=== PATIENT | female | born 1935 | race African-American/Black ===

== ENCOUNTER 2019-04-29 14:47 | Inpatient (IN) | payer MEDICARE, OTHER ==
[~2019-04-29] VITALS: Ht 167.6 cm; Wt 86.5 kg
[2019-04-29 15:29] LABS: GLUCOSE,POINT OF CARE 127 MG/DL (70-110)
[2019-04-29] MEDS ORDERED: ASPI81 PO (15:33)
[2019-04-29] MEDS ORDERED: ALEN70TA10 PO (15:33)
[2019-04-29] MEDS ORDERED: AMLO2.5T4 PO (15:33)
[2019-04-29] MEDS ORDERED: FLUT100B IH (15:33)
[2019-04-29] MEDS ORDERED: HYDR200T4 PO (15:33)
[2019-04-29] MEDS ORDERED: OXYC-530 PO (15:33)
[2019-04-29] MEDS ORDERED: CALC-1194 PO (15:33)
[2019-04-29] MEDS ORDERED: ATOR20TA86 PO (15:33)
[2019-04-29] MEDS ORDERED: FAMO20 PO (15:33)
[2019-04-29] MEDS ORDERED: PHOSLOC PO (15:33)
[2019-04-29] MEDS ORDERED: CARV3 PO (15:33)
[2019-04-29] MEDS ORDERED: FURO40 PO (15:33)
[2019-04-29 17:22] LABS: BASOPHILS % (AUTO) 0.2 % (0.0-2.0); EOSINOPHILS % (AUTO) 9.2 % (1.0-6.0); HEMATOCRIT 36.4 % (36-46); HEMOGLOBIN 11.8 g/dL (12.0-16.0); LYMPHOCYTES # (AUTO) 2.8 K/uL (1.0-4.8); LYMPHOCYTES % (AUTO) 21.9 % (22.0-44.0); MEAN CORPUSCULAR HGB CONC 32.3 G/dL (31.0-37.0); MEAN CORPUSCULAR VOLUME 99 fL (80-100); MONOCYTES # (AUTO) 1.2 K/uL (0.1-1.0); MONOCYTES % (AUTO) 9.4 % (2.0-9.0); NEUTROPHILS # (AUTO) 7.5 K/uL (1.8-7.7); NEUTROPHILS % (AUTO) 59.3 % (40.0-70.0); PLATELET COUNT (AUTO) 270 K/uL (150-450); RED BLOOD CELL COUNT(AUTO) 3.69 MIL/uL (4.00-5.20); RED CELL DISTRIBUTION WIDTH 14.7 % (11.5-14.5)
[2019-04-29 17:35] LABS: PROTHROMBIN TIME 10.8 SEC (9.4-11.6)
[2019-04-29 18:00] LABS: ALBUMIN 2.5 g/dL (3.4-5.0); BILIRUBIN,TOTAL 0.3 mg/dL (0.1-1.0); CREATININE 3.94 mg/dL (0.60-1.30); TOTAL PROTEIN, SERUM 8.5 g/dL (6.4-8.2)
[2019-04-29 18:02] LABS: CALCIUM, TOTAL 13.1 mg/dL (8.8-10.5)
[2019-04-29] MEDS ORDERED: SODIUM CHLORIDE 0.9% 2,000 ML IV ONE (18:15)
[2019-04-29 19:06] LABS: APPEARANCE,URINE CLOUDY (CLEAR); BILIRUBIN,URINE NEGATIVE (NEGATIVE); GLUCOSE, URINE (UA) NEGATIVE (NEGATIVE); KETONES,URINE NEGATIVE (NEGATIVE); LEUKOCYTE ESTERASE ,URINE LARGE (NEGATIVE); NITRATE,URINE NEGATIVE (NEGATIVE); OCCULT BLOOD,URINE LARGE (NEGATIVE); PH,URINE 6.5 (5.0-8.0); PROTEIN,URINE POS 1+ (NEGATIVE); UROBILINOGEN,URINE 0.2 mg/dL (<=1.0)
[2019-04-29 19:17] LABS: BACTERIA,URINE Few /HPF (None Seen); SQUAMOUS EPITHELIAL CELL,UR Few /LPF (None Seen); WBC,URINE 26-50 /HPF (0-5)
[2019-04-29] MEDS ORDERED: CEFEPIME HCL 1 GM in DEXTROSE 5%-WATER 50 ML IV ONE (19:45)
[2019-04-29] MEDS ORDERED: SODIUM CHLORIDE 0.9% 1,000 ML IV ONE (20:15)
[2019-04-29 20:30] LABS: CREATININE 4.37 mg/dL (0.60-1.30); POTASSIUM 4.3 mmol/L (3.5-5.1)
[2019-04-29 20:42] LABS: CALCIUM, TOTAL 14.1 mg/dL (8.8-10.5)
[2019-04-29] MEDS ORDERED: ONDANSETRON HCL 4 MG/2 ML VIAL IVP PRN (21:00)
[2019-04-29] MEDS ORDERED: ACETAMINOPHEN 325 MG TABLET PO PRN (21:00)
[2019-04-29] MEDS: CALCITONIN,SALMON,SYNTHETIC 200 UNITS/ML 2 ML VIAL IM SCH (21:33)
[2019-04-29 22:03] VITALS: BP 143/84
[2019-04-30] VITALS (7 sets, daily range): BP systolic 110–146; BP diastolic 52–85
[2019-04-30] MEDS: CALCITONIN,SALMON,SYNTHETIC 200 UNITS/ML 2 ML VIAL IM SCH ×2 (09:21→20:40)
[2019-04-30] MEDS: SODIUM CHLORIDE 0.9% 1,000 ML IV SCH ×2 (09:34→20:19)
[2019-04-30] MEDS ORDERED: MEDRONATE TC99M/UD<30 MCL ISOTOPE 1 EA INJ INJ ONE (11:00)
[2019-04-30 16:45] LABS: CALCIUM, TOTAL 11.5 mg/dL (8.8-10.5); CREATININE 3.08 mg/dL (0.60-1.30); POTASSIUM 3.8 mmol/L (3.5-5.1)
[2019-04-30] MEDS ORDERED: ZOLPIDEM TARTRATE 5 MG TABLET PO PRN (19:00)
[2019-04-30] MEDS ORDERED: MAGNESIUM HYDROXIDE SUSPENSION 30 ML UDCUP PO PRN (19:00)
[2019-04-30] MEDS ORDERED: ACETAMINOPHEN 325 MG TABLET PO PRN (19:00)
[2019-04-30] MEDS ORDERED: IPRATROPIUM BROMIDE 0.5 MG/2.5 ML NEB SOLUTION NEB PRN (19:00)
[2019-04-30] MEDS ORDERED: BISACODYL 10 MG RECTAL RECTAL SUPPOSITORY PR PRN (19:00)
[2019-04-30] MEDS ORDERED: ALBUTEROL SULFATE 2.5 MG/0.5 ML NEB SOLUTION NEB PRN (19:00)
[2019-04-30] MEDS: AmLODIPine BESYLATE 2.5 MG TABLET PO SCH (20:19)
[2019-04-30] MEDS: ONDANSETRON HCL 4 MG/2 ML VIAL IVP PRN (20:19)
[2019-04-30] MEDS: DOCUSATE SODIUM 100 MG CAPSULE PO SCH (20:19)
[2019-04-30] MEDS: CARVEDILOL 3.125 MG TABLET PO SCH (20:19)
[2019-04-30] MEDS: HYDROCODONE/ACETAMINOPHEN 5-325 MG TABLET PO PRN (20:20)
[2019-04-30] MEDS: HEPARIN SODIUM,PORCINE 5,000 UNITS/ML VIAL SQ SCH (23:51)
[2019-05-01 04:12] VITALS: BP 141/70
[2019-05-01] MEDS: SODIUM CHLORIDE 0.9% 1,000 ML IV SCH ×2 (05:01→19:24)
[2019-05-01] MEDS ORDERED: ALENDRONATE SODIUM 70 MG TABLET PO SCH (06:30)
[2019-05-01] MEDS: DOCUSATE SODIUM 100 MG CAPSULE PO SCH ×2 (08:23→20:54)
[2019-05-01] MEDS: ASPIRIN 81 MG CHEWABLE TABLET PO SCH (08:23)
[2019-05-01] MEDS: CARVEDILOL 3.125 MG TABLET PO SCH ×2 (08:23→20:49)
[2019-05-01] MEDS: HYDROXYCHLOROQUINE SULFATE 200 MG TABLET PO SCH (08:23)
[2019-05-01] MEDS: FAMOTIDINE 20 MG TABLET PO SCH (08:23)
[2019-05-01] MEDS: HEPARIN SODIUM,PORCINE 5,000 UNITS/ML VIAL SQ SCH ×2 (08:23→16:31)
[2019-05-01] MEDS: ATORVASTATIN CALCIUM 20 MG TABLET PO SCH (08:23)
[2019-05-01] MEDS: AmLODIPine BESYLATE 2.5 MG TABLET PO SCH (08:23)
[2019-05-01 08:26] VITALS: BP 124/59
[2019-05-01] MEDS: ONDANSETRON HCL 4 MG/2 ML VIAL IVP PRN ×3 (08:34→21:12)
[2019-05-01] MEDS: MORPHINE SULFATE 2 MG/ML SYRINGE IVP PRN (08:39)
[2019-05-01] MEDS ORDERED: PAMIDRONATE DISODIUM 60 MG in SODIUM CHLORIDE 0.9% 500 ML IV ONE (10:30)
[2019-05-01] MEDS: CALCITONIN,SALMON,SYNTHETIC 200 UNITS/ML 2 ML VIAL IM SCH (10:49)
[2019-05-01] MEDS: FLUTICASONE FUROATE 100 MCG/INH INHALER [14] IH SCH (11:38)
[2019-05-01 12:02] VITALS: BP 156/61
[2019-05-01 12:20] LABS: BASOPHILS % (AUTO) 0.4 % (0.0-2.0); HEMATOCRIT 30.6 % (36-46); LYMPHOCYTES # (AUTO) 3.2 K/uL (1.0-4.8); LYMPHOCYTES % (AUTO) 29.9 % (22.0-44.0); MEAN CORPUSCULAR HEMOGLOBIN 32.6 pg (26.0-34.0); MEAN CORPUSCULAR HGB CONC 32.7 G/dL (31.0-37.0); MEAN CORPUSCULAR VOLUME 100 fL (80-100); MONOCYTES # (AUTO) 0.9 K/uL (0.1-1.0); MONOCYTES % (AUTO) 8.5 % (2.0-9.0); NEUTROPHILS # (AUTO) 5.6 K/uL (1.8-7.7); NEUTROPHILS % (AUTO) 52.2 % (40.0-70.0); PLATELET COUNT (AUTO) 251 K/uL (150-450); RED BLOOD CELL COUNT(AUTO) 3.06 MIL/uL (4.00-5.20); RED CELL DISTRIBUTION WIDTH 14.5 % (11.5-14.5)
[2019-05-01 14:03] LABS: ALPHA-1 (IFE & PEP) 0.2 g/dL (0.0-0.4); BETA (IFE & ELP) 0.9 g/dL (0.7-1.3); GAMMA GLOBULINS (IFE & ELP) 2.7 g/dL (0.4-1.8); IGM (IMMUNOFIXATION) 55 mg/dL (26-217)
[2019-05-01 14:03] LABS: ALBUMIN URINE (ELP) 12.8 %
[2019-05-01] MEDS ORDERED: LACTULOSE 20 GM/30 ML SOLUTION UDCUP PO ONE (16:00)
[2019-05-01] MEDS: CefTRIAXone 1 GM/DEXTROSE 50 ML IV SCH (16:32)
[2019-05-01 16:46] VITALS: BP 161/87
[2019-05-01] MEDS: MetroNIDAZOLE 500 MG/NACL 100 ML IV SCH (17:32)
[2019-05-01] MEDS: HYDROCODONE/ACETAMINOPHEN 5-325 MG TABLET PO PRN (20:49)
[2019-05-01 21:31] VITALS: BP 150/69
[2019-05-01 22:03] LABS: FREE KAPPA LIGHT CHAINS,S 493.2 mg/L (3.3-19.4); FREE KAPPA/LAMBDA LT CHN RATIO 2.67 (0.26-1.65)
[2019-05-02] MEDS: HEPARIN SODIUM,PORCINE 5,000 UNITS/ML VIAL SQ SCH ×4 (00:13→23:54)
[2019-05-02] MEDS: MetroNIDAZOLE 500 MG/NACL 100 ML IV SCH ×4 (00:13→23:54)
[2019-05-02 02:01] VITALS: BP 142/69
[2019-05-02 04:59] VITALS: BP 142/75
[2019-05-02 06:23] LABS: BASOPHILS % (AUTO) 0.8 % (0.0-2.0); HEMATOCRIT 30.2 % (36-46); HEMOGLOBIN 9.8 g/dL (12.0-16.0); LYMPHOCYTES # (AUTO) 3.8 K/uL (1.0-4.8); LYMPHOCYTES % (AUTO) 34.7 % (22.0-44.0); MEAN CORPUSCULAR HEMOGLOBIN 32.3 pg (26.0-34.0); MEAN CORPUSCULAR HGB CONC 32.5 G/dL (31.0-37.0); MEAN CORPUSCULAR VOLUME 99 fL (80-100); MONOCYTES # (AUTO) 1.1 K/uL (0.1-1.0); MONOCYTES % (AUTO) 9.8 % (2.0-9.0); NEUTROPHILS # (AUTO) 5.2 K/uL (1.8-7.7); NEUTROPHILS % (AUTO) 47.7 % (40.0-70.0); PLATELET COUNT (AUTO) 256 K/uL (150-450); RED BLOOD CELL COUNT(AUTO) 3.04 MIL/uL (4.00-5.20); RED CELL DISTRIBUTION WIDTH 14.3 % (11.5-14.5)
[2019-05-02 06:49] LABS: ALBUMIN 2.1 g/dL (3.4-5.0); BILIRUBIN,TOTAL 0.3 mg/dL (0.1-1.0); CALCIUM, TOTAL 9.6 mg/dL (8.8-10.5); CREATININE 2.18 mg/dL (0.60-1.30); POTASSIUM 3.5 mmol/L (3.5-5.1); TOTAL PROTEIN, SERUM 7.5 g/dL (6.4-8.2)
[2019-05-02 07:56] VITALS: BP 138/58
[2019-05-02] MEDS: AmLODIPine BESYLATE 2.5 MG TABLET PO SCH (08:39)
[2019-05-02] MEDS: FAMOTIDINE 20 MG TABLET PO SCH (08:39)
[2019-05-02] MEDS: CARVEDILOL 3.125 MG TABLET PO SCH ×2 (08:39→20:40)
[2019-05-02] MEDS: ASPIRIN 81 MG CHEWABLE TABLET PO SCH (08:39)
[2019-05-02] MEDS: FLUTICASONE FUROATE 100 MCG/INH INHALER [14] IH SCH (08:39)
[2019-05-02] MEDS: ONDANSETRON HCL 4 MG/2 ML VIAL IVP PRN (08:39)
[2019-05-02] MEDS: HYDROXYCHLOROQUINE SULFATE 200 MG TABLET PO SCH (08:39)
[2019-05-02] MEDS: ATORVASTATIN CALCIUM 20 MG TABLET PO SCH (08:39)
[2019-05-02 11:15] VITALS: BP 115/63
[2019-05-02] MEDS: DOCUSATE SODIUM 100 MG CAPSULE PO SCH ×2 (11:43→20:41)
[2019-05-02] MEDS: SODIUM CHLORIDE 0.9% 1,000 ML IV SCH (11:43)
[2019-05-02] MEDS ORDERED: ALPRAZolam 0.5 MG TABLET PO ONE (12:30)
[2019-05-02 13:59] LABS: GLUCOMETER DEV NAME(LOC) 5S.1; GLUCOSE,POINT OF CARE 147 MG/DL (70-110)
[2019-05-02] MEDS ORDERED: SODIUM PHOS/SODIUM BIPHOS 133 ML ENEMA PR ONE (15:15)
[2019-05-02 15:46] VITALS: BP 133/68
[2019-05-02] MEDS: CefTRIAXone 1 GM/DEXTROSE 50 ML IV SCH (17:52)
[2019-05-02 19:48] VITALS: BP 122/67
[2019-05-02 19:54] LABS: GLUCOMETER DEV NAME(LOC) 5S.2A; GLUCOSE,POINT OF CARE 63 MG/DL (70-110)
[2019-05-03 00:03] VITALS: BP 145/72
[2019-05-03 04:45] VITALS: BP 148/56
[2019-05-03 06:43] LABS: BASOPHILS % (AUTO) 0.3 % (0.0-2.0); EOSINOPHILS % (AUTO) 7.8 % (1.0-6.0); HEMATOCRIT 29.8 % (36-46); HEMOGLOBIN 9.7 g/dL (12.0-16.0); LYMPHOCYTES # (AUTO) 3.8 K/uL (1.0-4.8); LYMPHOCYTES % (AUTO) 29.9 % (22.0-44.0); MEAN CORPUSCULAR HEMOGLOBIN 32.1 pg (26.0-34.0); MEAN CORPUSCULAR HGB CONC 32.5 G/dL (31.0-37.0); MEAN CORPUSCULAR VOLUME 99 fL (80-100); MONOCYTES # (AUTO) 1.4 K/uL (0.1-1.0); MONOCYTES % (AUTO) 11.2 % (2.0-9.0); NEUTROPHILS # (AUTO) 6.4 K/uL (1.8-7.7); NEUTROPHILS % (AUTO) 50.8 % (40.0-70.0); PLATELET COUNT (AUTO) 244 K/uL (150-450); RED BLOOD CELL COUNT(AUTO) 3.01 MIL/uL (4.00-5.20); RED CELL DISTRIBUTION WIDTH 14.3 % (11.5-14.5)
[2019-05-03 06:50] LABS: HEMOGLOBIN A1C 5.7 % (4.5-6.2)
[2019-05-03 07:14] LABS: BILIRUBIN,TOTAL 0.2 mg/dL (0.1-1.0); CALCIUM, TOTAL 9.1 mg/dL (8.8-10.5); CREATININE 1.83 mg/dL (0.60-1.30); MAGNESIUM 1.6 mg/dL (1.80-2.40); PHOSPHORUS 1.5 mg/dL (2.5-4.9); POTASSIUM 3.5 mmol/L (3.5-5.1); TOTAL PROTEIN, SERUM 7.3 g/dL (6.4-8.2)
[2019-05-03 08:14] VITALS: BP 122/59
[2019-05-03] MEDS: FLUTICASONE FUROATE 100 MCG/INH INHALER [14] IH SCH (08:15)
[2019-05-03] MEDS: MetroNIDAZOLE 500 MG/NACL 100 ML IV SCH ×3 (08:15→23:18)
[2019-05-03] MEDS: HEPARIN SODIUM,PORCINE 5,000 UNITS/ML VIAL SQ SCH ×3 (08:15→23:18)
[2019-05-03] MEDS: ASPIRIN 81 MG CHEWABLE TABLET PO SCH (08:16)
[2019-05-03] MEDS: AmLODIPine BESYLATE 2.5 MG TABLET PO SCH (08:16)
[2019-05-03] MEDS: HYDROXYCHLOROQUINE SULFATE 200 MG TABLET PO SCH (08:16)
[2019-05-03] MEDS: ATORVASTATIN CALCIUM 20 MG TABLET PO SCH (08:17)
[2019-05-03] MEDS: FAMOTIDINE 20 MG TABLET PO SCH (08:17)
[2019-05-03] MEDS: DOCUSATE SODIUM 100 MG CAPSULE PO SCH ×2 (08:17→20:31)
[2019-05-03] MEDS: HYDROCODONE/ACETAMINOPHEN 5-325 MG TABLET PO PRN ×2 (08:22→17:04)
[2019-05-03] MEDS: SODIUM CHLORIDE 0.9% 1,000 ML IV SCH ×2 (08:29→20:31)
[2019-05-03] MEDS: CARVEDILOL 3.125 MG TABLET PO SCH ×2 (09:00→20:31)
[2019-05-03 12:05] VITALS: BP 145/73
[2019-05-03] MEDS ORDERED: MAGNESIUM SULFATE 2 GM/WATER 50 ML IV ONE (15:15)
[2019-05-03 16:35] VITALS: BP 112/57
[2019-05-03] MEDS: CefTRIAXone 1 GM/DEXTROSE 50 ML IV SCH (18:51)
[2019-05-03 21:31] VITALS: BP 148/69
[2019-05-04] MEDS ORDERED: SODIUM CHLORIDE 0.9% 500 ML IV ONE (02:05)
[2019-05-04] MEDS: HYDROCODONE/ACETAMINOPHEN 5-325 MG TABLET PO PRN (02:07)
[2019-05-04 02:09] VITALS: BP 150/77
[2019-05-04] MEDS ORDERED: ALENDRONATE SODIUM 70 MG TABLET PO SCH (06:30)
[2019-05-04] MEDS: ONDANSETRON HCL 4 MG/2 ML VIAL IVP PRN ×3 (06:42→16:55)
[2019-05-04 06:44] VITALS: BP 139/75
[2019-05-04 07:00] LABS: BASOPHILS % (AUTO) 0.3 % (0.0-2.0); HEMATOCRIT 30.7 % (36-46); HEMOGLOBIN 9.8 g/dL (12.0-16.0); LYMPHOCYTES # (AUTO) 3.6 K/uL (1.0-4.8); LYMPHOCYTES % (AUTO) 26.6 % (22.0-44.0); MEAN CORPUSCULAR HEMOGLOBIN 31.8 pg (26.0-34.0); MEAN CORPUSCULAR HGB CONC 32.1 G/dL (31.0-37.0); MEAN CORPUSCULAR VOLUME 99 fL (80-100); MONOCYTES # (AUTO) 1.4 K/uL (0.1-1.0); MONOCYTES % (AUTO) 10.3 % (2.0-9.0); NEUTROPHILS # (AUTO) 7.7 K/uL (1.8-7.7); NEUTROPHILS % (AUTO) 56.8 % (40.0-70.0); PLATELET COUNT (AUTO) 237 K/uL (150-450); RED BLOOD CELL COUNT(AUTO) 3.09 MIL/uL (4.00-5.20); RED CELL DISTRIBUTION WIDTH 14.8 % (11.5-14.5)
[2019-05-04 07:16] LABS: CALCIUM, TOTAL 8.8 mg/dL (8.8-10.5); CREATININE 1.76 mg/dL (0.60-1.30); MAGNESIUM 2.2 mg/dL (1.80-2.40)
[2019-05-04 07:20] LABS: POTASSIUM 3.4 mmol/L (3.5-5.1)
[2019-05-04 07:36] LABS: PHOSPHORUS 1.4 mg/dL (2.5-4.9)
[2019-05-04 08:10] VITALS: BP 128/68
[2019-05-04] MEDS ORDERED: SODIUM CHLORIDE 0.9% 100 ML ONE (08:24)
[2019-05-04] MEDS ORDERED: POTASSIUM PHOS,M-BASIC-D-BASIC 20 MMOL in DEXTROSE 5%-WATER 150 ML IV ONE (08:30)
[2019-05-04] MEDS: ATORVASTATIN CALCIUM 20 MG TABLET PO SCH (08:53)
[2019-05-04] MEDS: DOCUSATE SODIUM 100 MG CAPSULE PO SCH ×2 (08:53→20:12)
[2019-05-04] MEDS: MetroNIDAZOLE 500 MG/NACL 100 ML IV SCH ×2 (08:53→16:55)
[2019-05-04] MEDS: HEPARIN SODIUM,PORCINE 5,000 UNITS/ML VIAL SQ SCH ×2 (08:53→16:54)
[2019-05-04] MEDS: CARVEDILOL 3.125 MG TABLET PO SCH ×2 (08:53→20:12)
[2019-05-04] MEDS: FAMOTIDINE 20 MG TABLET PO SCH (08:53)
[2019-05-04] MEDS: FLUTICASONE FUROATE 100 MCG/INH INHALER [14] IH SCH (08:53)
[2019-05-04] MEDS: AmLODIPine BESYLATE 2.5 MG TABLET PO SCH (08:53)
[2019-05-04] MEDS: HYDROXYCHLOROQUINE SULFATE 200 MG TABLET PO SCH (08:54)
[2019-05-04] MEDS: ASPIRIN 81 MG CHEWABLE TABLET PO SCH (08:54)
[2019-05-04 11:12] VITALS: BP 141/68
[2019-05-04] MEDS: MORPHINE SULFATE 2 MG/ML SYRINGE IVP PRN ×3 (12:07→20:11)
[2019-05-04 15:06] VITALS: BP 135/71
[2019-05-04] MEDS: CefTRIAXone 1 GM/DEXTROSE 50 ML IV SCH (18:14)
[2019-05-04 19:57] VITALS: BP 135/67
[2019-05-05 00:01] VITALS: BP 144/89
[2019-05-05] MEDS: MORPHINE SULFATE 2 MG/ML SYRINGE IVP PRN ×3 (00:12→08:27)
[2019-05-05] MEDS: ONDANSETRON HCL 4 MG/2 ML VIAL IVP PRN ×2 (00:12→08:27)
[2019-05-05] MEDS: HEPARIN SODIUM,PORCINE 5,000 UNITS/ML VIAL SQ SCH ×3 (00:12→16:00)
[2019-05-05] MEDS: MetroNIDAZOLE 500 MG/NACL 100 ML IV SCH ×3 (00:14→16:00)
[2019-05-05 04:18] VITALS: BP 145/69
[2019-05-05 06:33] LABS: CALCIUM, TOTAL 8.5 mg/dL (8.8-10.5); CREATININE 1.76 mg/dL (0.60-1.30); MAGNESIUM 2.1 mg/dL (1.80-2.40); PHOSPHORUS 2.2 mg/dL (2.5-4.9); POTASSIUM 4.2 mmol/L (3.5-5.1)
[2019-05-05] MEDS: FAMOTIDINE 20 MG TABLET PO SCH (08:28)
[2019-05-05] MEDS: AmLODIPine BESYLATE 2.5 MG TABLET PO SCH (08:28)
[2019-05-05] MEDS: CARVEDILOL 3.125 MG TABLET PO SCH (08:28)
[2019-05-05] MEDS: HYDROXYCHLOROQUINE SULFATE 200 MG TABLET PO SCH (08:28)
[2019-05-05] MEDS: ATORVASTATIN CALCIUM 20 MG TABLET PO SCH (08:28)
[2019-05-05] MEDS: DOCUSATE SODIUM 100 MG CAPSULE PO SCH (08:28)
[2019-05-05] MEDS: ASPIRIN 81 MG CHEWABLE TABLET PO SCH (08:28)
[2019-05-05] MEDS ORDERED: SODIUM CHLORIDE 0.9% 500 ML IV ONE (08:53)
[2019-05-05] MEDS: FLUTICASONE FUROATE 100 MCG/INH INHALER [14] IH SCH (09:13)
[2019-05-05 09:24] VITALS: BP 138/85
[2019-05-05 11:47] VITALS: BP 133/70
[2019-05-05] MEDS: BRIMONIDINE TARTRATE 0.2% 5 ML OPHTHALMIC SOLUTION OU SCH ×2 (14:37→15:24)
[2019-05-05] MEDS: BRINZOLAMIDE 1% 10 ML OPHTHALMIC SUSPENSION OU SCH ×2 (14:37→15:24)
[2019-05-05] MEDS: HYDROCODONE/ACETAMINOPHEN 5-325 MG TABLET PO PRN (14:37)
[2019-05-05] MEDS ORDERED: BRINZOLAMIDE 1% 10 ML OPHTHALMIC SUSPENSION OU SCH (16:00)
[2019-05-05] MEDS ORDERED: BRIMONIDINE TARTRATE 0.2% 5 ML OPHTHALMIC SOLUTION OU SCH (16:00)
[2019-05-05 16:05] VITALS: BP 105/71
[2019-05-05] MEDS: CefTRIAXone 1 GM/DEXTROSE 50 ML IV SCH (17:00)
[2019-05-06 03:24] LABS: GLUCOMETER DEV NAME(LOC) 5S.1; GLUCOSE,POINT OF CARE 118 MG/DL (70-110)
== END 2019-05-05 16:20 | DRG 682 ==
LOC: EMS 14:49 → 5N 21:00
PROVIDERS: ADMIT Hospitalist; ATTEND Hospitalist
DX: N17.9 Acute kidney failure, unspecified (principal); E43 Unspecified severe protein-calorie malnutrition; G93.41 Metabolic encephalopathy; E87.1 Hypo-osmolality and hyponatremia; I13.0 Hypertensive heart and chronic kidney disease with heart failure and stage 1 through stage 4 chronic kidney disease, or unspecified chronic kidney disease; N39.0 Urinary tract infection, site not specified; R65.10 Systemic inflammatory response syndrome (SIRS) of non-infectious origin without acute organ dysfunction; E83.52 Hypercalcemia; R79.89 Other specified abnormal findings of blood chemistry; N18.9 Chronic kidney disease, unspecified; E78.5 Hyperlipidemia, unspecified; E83.39 Other disorders of phosphorus metabolism; E83.51 Hypocalcemia; E86.0 Dehydration; F03.90 Unspecified dementia, unspecified severity, without behavioral disturbance, psychotic disturbance, mood disturbance, and anxiety; I09.9 Rheumatic heart disease, unspecified; I25.10 Atherosclerotic heart disease of native coronary artery without angina pectoris; I50.9 Heart failure, unspecified; J44.9 Chronic obstructive pulmonary disease, unspecified; E78.00 Pure hypercholesterolemia, unspecified; K21.9 Gastro-esophageal reflux disease without esophagitis; M81.0 Age-related osteoporosis without current pathological fracture; Z87.440 Personal history of urinary (tract) infections; Z88.2 Allergy status to sulfonamides; Z91.041 Radiographic dye allergy status; Z79.82 Long term (current) use of aspirin; Z79.899 Other long term (current) drug therapy; Z74.01 Bed confinement status; Z68.30 Body mass index [BMI] 30.0-30.9, adult
CPT/HCPCS: 70450; 74176; 74181; 76700; 78306; 82397; 82784; 83036; 83605; 83735; 83883; 83970; 84100; 84145; 84155; 84156; 84165; 84166; 86334; 87040; 87081; 87086; 93005; 94640; 97162; A9503; G0378; J0630; J0692; J0696; J1644; J2270; J2405; J2430; J3475; J3490; J7030; J7040; J7050; J7060